=== PATIENT | female | born 1955 | race Caucasian/White ===

== ENCOUNTER 2021-07-23 10:24 | Inpatient (IN) | payer MEDICAID, SELFPAY ==
[2021-07-23] VITALS (12 sets, daily range): BP systolic 96–158; BP diastolic 59–86; PULSE 77–124; RESP 18–24; TEMP 36.6–37.8; O2SAT 86–96; BMI 27.2
--- NOTE | ~2021-07-23 | XR_ITS ---
EXAMINATION: XR chest 1V portable INDICATION: Shortness of breath and hypoxia, COVID 19 TECHNIQUE: Portable AP chest at 1119 hours COMPARISON: None available FINDINGS: There are patchy bilateral interstitial and airspace opacities throughout the all lung zone s. No pleural effusion or pneumothorax is identified. The cardiomediastinal silhouette is normal. IMPRESSION: 1. Diffuse lung disease, consistent with COVID 19 pneumonia given the patient's clinical history. Reviewed, dictated and finalized at location B. IE SCRATCHER
--- NOTE | ~2021-07-23 | CT_ITS ---
EXAMINATION: CTA chest PE protocol DATE: 07/23/2021 13:00 INDICATION: Hypoxia. Tachycardia. COVID-19 pneumonia. TECHNIQUE: Computed tomography angiography (CTA) of the chest was performed with 100 mL Omnipaque-350 intravenous contrast timed to evaluate the pulmonary arteries. Coronal maximum intensity projection 3D-reconstructions were created by the technologist. Automated exposure control and iterative reconst ruction technique were employed. The dose-length product was 425.44 mGy-cm. COMPARISON: Chest single view 07/23/2021, thyroid ultrasound 06/25/2015 FINDINGS: There is mild emphysema. There are widespread groundglass opacities and crazy paving in the lungs involving all lobes with a peripheral predominance. No pleural effusion. There is a chronic mu ltinodular goiter. The heart size is normal. No pericardial effusion. There is no pulmonary embolus. There is mild thoracic spondylosis. There is a chronic compression fracture of T11. IMPRESSION: 1. No pulmonary embolus. Sensitivity is moderately decreased by motion artifact. 2. Diffuse lung disease, consistent with COVID-19 pneumonia. 3. Mild emphysema. Reviewed, dictated and finalized at location A. ELAIN FINISHER IMPRESSION: 1. No pulmonary embolus. Sensitivity is moderately decreased by motion artifact . 2. Diffuse lung disease, consistent with COVID-19 pneumonia. 3. Mild emphysema.
--- NOTE | ~2021-07-23 | XR_ITS ---
EXAMINATION: XR chest 1V portable EXAM DATE: 07/27/2021 10:36 INDICATION: SOB,Cough,COVID + ON 06/17/21 . TECHNIQUE: Portable AP frontal chest x-ray was obtained. Comparison is made to prior examination from 07/23/2021. FINDINGS: There is moderate amount of right-sided peripheral and smaller amount of left-sided periphe ral acute airspace disease, distribution is consistent with COVID pneumonia. Appearance is stable or with mild interval improvement. No pneumothorax or pleural effusion. Cardiomediastinal silhouette is normal. There are no osseous abnormalities identified. IMPRESSION: Moderate amount of bilateral COVID pneumonia, stable or with mild improvement. Reviewed, dictated and finalized at location B. RCEMENT OFFICER
--- NOTE | 2021-07-23 10:51 | ED.SOB ---
HPI - SOB/Dyspnea General Chief Complaint: Shortness of Breath/Dyspnea Stated Complaint: Covid + Time Seen by Provider: 07/23/21 10:58 Source: patient Mode of arrival: ambulatory Limitations: no limitations History of Present Illness HPI Narrative: 65-year-old woman with a history of hypertension and smoking comes in today complaining of increasing shortness of breath. She was diagnosed on 07/18 with COVID pneumonia. She also had a lumbar compression fracture at that time. She has been in quarantine since. And follow-up with her primary care doctor today showed that her SpO2 was 80% on room air and she was taught tachycardic at 140. Patient states that she does not feel worse than she did earlier this week. She states her cough is productive and she denies any chest pain or pressure, vomiting, diarrhea, lightheadedness, abdominal pain, or lower extremity pain or swelling. MD elicited complaint: shortness of breath Pertinent past history: COPD (?) Onset (ago): day(s) (-) Severity: moderate Exacerbating factors: exertion Relieving factors: rest Known history of: COPD (?) Associated symptoms: cough, wheezing and sputum production Treatment prior to arrival: none Related Data Home oxygen amount: none Allergies Allergy/AdvReac Type Severity Reaction Status Date / Time cephalexin [Keflex] Allergy Intermediate unknown Verified 07/23/21 10:53 codeine Allergy Intermediate unknown Verified 07/23/21 10:53 Penicillins Allergy Intermediate unknown Verified 07/23/21 10:53 Review of Systems Review of Systems: All systems reviewed & are unremarkable except as noted in HPI and below Constitutional: Constitutional: Denies chills and Reports fever(s) ( now resolved) Eyes: Eyes: Denies change in vision and Denies photophobia ENT: Denies dysphagia, Denies nasal congestion and Denies sore throat Cardiovascular: Cardiovascular: Denies chest pain and Denies radiating jaw, neck or arm pain Respiratory: Respiratory: Reports cough, Reports dyspnea and Reports wheezing Gastrointestinal: Gastrointestinal: Denies abdominal pain, Denies diarrhea, Denies nausea and Denies vomiting Genitourinary: Genitourinary: Denies nocturia and Denies dysuria Musculoskeletal: Musculoskeletal: Reports as per HPI, Reports back pain, Denies arthralgias and Denies joint swelling Integumentary/Breasts: Skin/Breast: Denies pruritus, Denies erythema and Denies rash Neurologic: Denies vertigo, Denies dizziness, Denies syncope, Denies focal weakness and Denies numbness Hematologic/Lymphatic: Hematologic/Lymphatic: Denies easy bleeding and Denies easy bruising Allergic/Immunologic: Allergic/Immunologic: Denies lip swelling and Denies throat swelling PMFSH Past Medical History Medical History Abnormal finding on thyroid function test (06/16/15) Benign essential tremor Chronic low back pain HTN (hypertension) with goal to be determined Lumbar compression fracture Nicotine dependence Surgical History Surgical History H/O: section History of dilation and curettage History of hysterectomy History of removal of calculus of renal pelvis through percutaneous nephrostomy History of tonsillectomy Social History Social History Smoking packs per day: 1 Smoking cigarettes per day: 20.0 Years smoked: 40 Smoking pack-years: 40.00 Smoking status: Current every day smoker Tobacco type: cigarettes Alcohol intake: current Substance use: never Substance use type: does not use Gender identity (if verbalized by the patient): Female Exam Const: General: alert and ill appearing acutely ( Mild) Orientation/consciousness: patient oriented x3 Limitations: no limitations Other: mild acute distress. HENMT: Head: normal to inspection Ears: external ears normal, TM's normal bilatera
--- NOTE | 2021-07-23 10:52 | ECG_ITS ---
Measurements Intervals [place] Rate: 108 P: 50 MS: 132 QRS: -14 QRSD: 97 T: 20 QT: 330 QTc: 443 Interpretive Statements SINUS TACHYCARDIA LEFT VENTRICULAR HYPERTROPHY CONSIDER INFERIOR INFARCT, AGE INDETERMINATE BASELINE ARTIFACT- I, II, III, AVR, AVL, AVF, V1-V6 ABNORMAL ECG Electronically Signed On 07-23-2021 15:36:03 TYPEWRITER ALIGNER by Nuno Lucio D.O.
[2021-07-23 11:13] LABS: Lactic Acid Reflex 1.6 mmol/L (0.4-2.0)
[2021-07-23 11:20] LABS: NT Pro B Type Natriuretic Pept 244 pg/mL (0-125); Troponin I 10.6 ng/L (0.00-60.4)
[2021-07-23 11:36] LABS: Carboxyhemoglobin 0.7 % (0-1.5); HCO3 ABG 28.4 mmol/L (23-29); Methemoglobin ABG 0.2 % (0-1.5); Oxygen Content ABG 17.4 %vol (16.0-22.0); Oxygen Saturation ABG 85.2 % (95-97); Oxyhemoglobin 84.4 % (94-100); PO2 ABG 44.9 mmHg (80-90); Reduced Hemoglobin 14.7 % (0-1.5); Total Hemoglobin 14.7 g/dL (12.0-18.0); pH ABG 7.54 (7.35-7.45)
[2021-07-23 11:37] LABS: Device NASAL CANNULA; Modified Allen's Test Pass; Site Drawn LEFT RADIAL
[2021-07-23 11:40] LABS: Add Urine Microscopic? YES; Appearance Urine Clear (Clear); Bilirubin Urine Negative (Negative); Blood Urine 2+ (Negative); Color Urine Yellow (Yellow); Glucose Urine UA Negative (Negative); Ketones Urine Negative (Negative); Leukocyte Esterase Ur Negative LEU/UL (Negative); Nitrate Urine Negative (Negative); Protein Urine 3+ (Negative)
[2021-07-23 11:54] LABS: Squamous Epithelial Cell Urine Few /hpf (Few); WBC Urine 0-3 /hpf (0-3)
[2021-07-23 11:55] LABS: Bacteria Urine 2+ /hpf
--- NOTE | 2021-07-23 12:28 | PC.NURSE ---
pt voided 500 ml clear yellow urine per bedpan. resp even and minimally labored with the effort of getting on and off the bedpan
--- NOTE | 2021-07-23 13:36 | PM.IMHP ---
H&P: HPI History of Present Illness Date/Time: 07/23/21 13:36 Maribel Hernandez is a 65 year old female who comes to [facility] after having been diagnosed with COVID at an outside facility with lab results from 07/18/2021. 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 She thought she was just getting tired from working so much. Pt states she is not having SOB when she is resting in the bed but does become SOB with activity. pt denies numbness, tingling, light headedness, dizziness, chest pain, abdominal pain, body aches, joint aches, fever or chills. Pt stopped smoking 1 week ago as she was becoming more ill and having SIB. Pt denies being anxious at this time. She states that she has not had any vaccinations and does not want to be given any vaccinations. Also denies N/V/D. Chief Complaint: SOB, Positive COVID test 07/18/2021 Review of Systems Review of Systems: All systems reviewed & are unremarkable except as noted in HPI and below Respiratory: Respiratory: Reports cough (non-productive) [facility] Past Medical History Medical History Abnormal finding on thyroid function test (06/16/15) Benign essential tremor Chronic low back pain HTN (hypertension) with goal to be determined Lumbar compression fracture Nicotine dependence Surgical History Surgical History H/O: section History of dilation and curettage History of hysterectomy History of removal of calculus of renal pelvis through percutaneous nephrostomy History of tonsillectomy Social History Social History Smoking packs per day: 1 Smoking cigarettes per day: 20.0 Years smoked: 40 Smoking pack-years: 40.00 Smoking status: Current every day smoker Tobacco type: cigarettes Alcohol intake: current Substance use: never Substance use type: does not use Gender identity (if verbalized by the patient): Female Meds Home Medications and Allergies Home Medications Medication Instructions Recorded Confirmed Type lisinopril 20 mg tablet 20 mg PO DAILY #90 tablet 04/27/21 07/23/21 Rx metoprolol tartrate 25 mg tablet 25 mg PO BID #180 tablet 04/27/21 07/23/21 Rx Allergies Allergy/AdvReac Type Severity Reaction Status Date / Time cephalexin [Keflex] Allergy Intermediate unknown Verified 07/23/21 10:53 codeine Allergy Intermediate unknown Verified 07/23/21 10:53 Penicillins Allergy Intermediate unknown Verified 07/23/21 10:53 Vital Signs Vital Signs - 24 hr 07/23/21 10:37 07/23/21 11:25 07/23/21 11:33 Temperature 100.1 F H Pulse Rate 124 H 114 H 113 H Respiratory Rate 22 H 22 H Blood Pressure 158/86 H Pulse Oximetry 88 L 86 L 07/23/21 12:32 Temperature Pulse Rate Respiratory Rate 24 H Blood Pressure Pulse Oximetry 88 L Exam Const: General: cooperative, comfortable, no acute distress, well developed, alert, awake and Physically active Nutritional Appearance: average body habitus Neck: Neck: normal visual inspection, full ROM and no JVD Resp: Effort & Inspection: tachypneic (22) Auscultation: rales bilateral at the base and 1/[address] up and rhonchi (scattered) Cardio: Jugular venous distension: no JVD Rate: tachycardic Heart sounds: S1 normal heart sound present and S2 normal heart sound present GI: GI Palp: Yes Soft to palpation and No Tenderness to palpation present (GI) Auscultation: Hypoactive bowel sounds present Back/Spine/Pelvis: Cervical Spine: other (Mole on her back, Pt states this has been there forever) Skin: General skin exam: normal color and dry skin Neuro: General: oriented to person, oriented to place and oriented to time Cranial nerves: Yes CN's II-XII intact bilaterally (grossly intact) Cognition (Neuro): normal cognition Speech: normal speech Extrem: General: n
--- NOTE | 2021-07-23 15:24 | PC.NURSE ---
Patient admitted to room 211. Patient transferred to bed from the [facility]. Oriented to room and call light.
[2021-07-23] MEDS: DEXTROSE 5%/0.9% SOD CHL 1,000 ML 100 ML IV CONT (16:00)
[2021-07-23] MEDS: REMDESIVIR 200 MG/NS 250 ML 200 MG/250 ML BAG 250 MG IVPB (16:00)
[2021-07-23] MEDS: ENOXAPARIN 40 MG/0.4 ML SYRINGE SUB-Q (17:21)
[2021-07-23] MEDS: ACETAMINOPHEN 325 MG TABLET 650 MG PO (18:09)
[2021-07-23] MEDS: METOPROLOL TARTRATE 25 MG TABLET PO (18:20)
--- NOTE | 2021-07-23 23:09 | PC.NURSE ---
Introduction to the pt completed. Pt whiteboard updated. Pt is laying in bed watching TV with the call light within reach.
[2021-07-24] VITALS (15 sets, daily range): BP systolic 126–156; BP diastolic 79–91; PULSE 79–106; RESP 18–22; TEMP 36.4–36.6; O2SAT 92–98
--- NOTE | 2021-07-24 02:30 | PC.NURSE ---
High flow nasal cannula settings changed to 40L 02 and FiO2 @ 50% per Dr Ellis's order.
[2021-07-24] MEDS: DEXTROSE 5%/0.9% SOD CHL 1,000 ML 100 ML IV CONT ×3 (02:43→22:35)
--- NOTE | 2021-07-24 03:58 | PC.NURSE ---
Battery changed on pt's tele device. Pt is sleeping with the TV on and call light within reach.
[2021-07-24 05:21] LABS: Hematocrit 38.9 % (35.0-49.0); Hemoglobin 12.8 g/dL (12.0-15.0); Mean Corpuscular HGB Conc 32.9 g/dL (32.0-36.0); Mean Corpuscular Hemoglobin 28.2 pg (27.0-31.0); Mean Corpuscular Volume 85.7 fL (78.0-102.0); Mean Platelet Volume 9.6 fl (9.2-11.8); Platelet Count Result 237 K/mm3 (150-420); Red Blood Count 4.54 M/mm3 (4.20-5.40); White Blood Count 3.8 K/mm3 (4.8-10.8)
[2021-07-24 05:33] LABS: INR 1.1; Prothrombin Time 11.4 Seconds (9.50-12.10)
[2021-07-24 05:38] LABS: Band Neutrophils Percent 0 % (0-6); Basophils Percent Manual 0 % (0-1); Eosinophils Percent Manual 0 % (1-6); Lymphocytes Absolute Manual 0.57 K/mm3 (1.1-4.5); Lymphocytes Percent Manual 15 % (18-44); Monocytes Absolute Manual 0.19 K/mm3 (0.1-0.90); Monocytes Percent Manual 5 % (3-9); Neutrophils Absolute Manual 3.04 K/mm3 (1.7-7.2); Neutrophils Percent Manual 80 % (46-73); Platelet Estimate Adequate (Adequate); Total Cells Counted 100
[2021-07-24 05:39] LABS: Atypical Lymphocytes Present
[2021-07-24 05:42] LABS: Alanine Aminotransferase 25 U/L (14-59); Albumin Level 1.8 g/dL (3.4-5.0); Alkaline Phosphatase 71 U/L (46-116); Anion Gap 7 mmol/L (8-16); Aspartate Amino Transferase 45 U/L (15-37); Bilirubin,Total 0.4 mg/dL (0.00-1.00); Blood Urea Nitrogen 10 mg/dL (7-18); Carbon Dioxide 29 mmol/L (21-32); Chloride 103 mmol/L (98-108); Estimated CRCL calculation 73 ml/min; Estimated Glomerular Filt Rate > 60; Glucose 168 mg/dL (70-99); Osmolality Calculated 291 mOsm/kg (285-295); Potassium 3.1 mmol/L (3.5-5.1); Sodium 139 mmol/L (136-145); Total Protein 5.9 g/dL (6.4-8.2)
[2021-07-24] MEDS: POTASSIUM CHLORIDE 20 MEQ TABLET 40 MEQ PO (07:39)
[2021-07-24] MEDS: lisinopriL 20 MG TABLET PO (08:18)
[2021-07-24] MEDS: METOPROLOL TARTRATE 25 MG TABLET PO ×2 (08:18→17:44)
--- NOTE | 2021-07-24 08:34 | PM.IMPN ---
Progress Note: A&P Assessment and Plan (1) COVID-19: Code(s): U07.1 - COVID-19 Status: Acute Assessment and Plan: Will administer Remdesivir, Decadron, HFNC 40/60%, cardiac monitoring with continuous SpO2 monitoring currently 95%, Pt states she is fine but she does look anxious, will monitor Coagulation, ALT, Renal function while on Remdesivir 07/24/2021 PT/INR 11.4/1.1, Cr 0.63, ALT 25, AST 45, HFNC 40L/min / 60%, SpO2 96%, no SOB, no difficulty breathing, lung sounds improved (2) HTN (hypertension) with goal to be determined: Code(s): I10 - Essential (primary) hypertension Status: Chronic Assessment and Plan: Continue Lisinopril and Metoprolol, monitor VS, make adjustments to medications as needed. 07/24/2021 BP 96-151 systolic 59-91 diastolic, HR 70s-100, will continue to monitor, VSS (3) Nicotine dependence: Code(s): F17.200 - Nicotine dependence, unspecified, uncomplicated Status: Acute Assessment and Plan: Pt states she has not had a cigarette in 1 week and does not want a Nicotine Patch at this time. (4) Positive blood culture: Code(s): R78.81 - Bacteremia Status: Acute Assessment and Plan: On 07/18/2021 Pt was positive for Alpha Hemolytic Strep, new Cultures Pending, WBC is WNL, will see how new Blood Cx do and until then watchful waiting. 07/24/2021 Repeat Blood Cx from 07/23/2021 still pending Subjective Date/time seen: 07/24/21 08:34 Pt resting in bed. Maribel has no complaints of Chest Pain or SOB. She denies fevers, chills, muscle aches, body aches, joint pain. She does not move around the room much. Uses bedside commode with RN assistance. She states she is not anxious however she does appear to be a bit anxious. Pt was offered an anxiolytic if she desires. Pt states her breathing is good. Review of Systems Review of Systems: All systems reviewed & are unremarkable except as noted in HPI and below Exam Const: General: cooperative, comfortable, no acute distress, well developed, alert, awake and Physically active Nutritional Appearance: average body habitus Resp: Effort & Inspection: normal respiratory effort Auscultation: rhonchi (Mild bases) Cardio: Jugular venous distension: no JVD Rate: tachycardic Heart sounds: S1 normal heart sound present and S2 normal heart sound present GI: GI Palp: Yes Soft to palpation and No Tenderness to palpation present (GI) Auscultation: normal bowel sounds Skin: General skin exam: normal color and dry skin Neuro: General: oriented to person, oriented to place, oriented to time and CN's II-XI intact bilaterally (grossly intact) Cognition (Neuro): normal cognition Speech: normal speech Motor exam (neuro): 5/5 motor strength present throughout Extrem: General: no pedal edema Psych: Appearance: grossly normal Mental Status: mental status grossly normal Speech and movement: Normal speech and movement present Affect: normal affect Attitude: cooperative Thought process: Normal thought process present Objective Data Vital Signs Vital Signs: Vital Signs - 24 hr 07/23/21 10:37 07/23/21 11:25 07/23/21 11:33 Temperature 100.1 F H Pulse Rate 124 H 114 H 113 H Respiratory Rate 22 H 22 H Blood Pressure 158/86 H Pulse Oximetry 88 L 86 L 07/23/21 12:32 07/23/21 13:29 07/23/21 13:49 Temperature 99.1 F Pulse Rate 107 H 113 H Respiratory Rate 24 H 22 H 20 Blood Pressure 142/85 H Pulse Oximetry 88 L 87 L 96 07/23/21 14:00 07/23/21 14:25 07/23/21 16:00 Temperature 97.9 F 98.6 F Pulse Rate 110 H 108 H 110 H Respiratory Rate 20 18 20 Blood Pressure 147/84 H 96/59 L Pulse Oximetry 94 94 95 07/23/21 18:20 07/23/21 20:00 07/23/21 23:16 Temperature 98.1 F Pulse Rate 108 H 84 77 Respiratory Rate 20 Blood Pressure 140/76 Pulse Oximetry 95 07/24/21 00:00 07/24/21 03:07 07/24/21 03:58 Temperature 97.9 F 98 F Pulse Rate 80 86 79 Respiratory Rate 19 20 Blood Pressu
[2021-07-24] MEDS: REMDESIVIR 100 MG/NS 250 ML 100 MG/250 ML BAG 250 MG IVPB (10:10)
[2021-07-24] MEDS: ENOXAPARIN 40 MG/0.4 ML SYRINGE SUB-Q (17:45)
[2021-07-24 20:13] LABS: Glucose Point of Care 154 mg/dl (65-105)
[2021-07-25] VITALS (9 sets, daily range): BP systolic 141–155; BP diastolic 75–81; PULSE 86–110; RESP 16–24; TEMP 36.4–36.6; O2SAT 93–97
--- NOTE | 2021-07-25 | PC.NURSE ---
Pt assisted to BSC. Urinated clear yellow urine, pt has some noted SOB c exertion. Pt assisted back to bed in position of comfort. Lungs noted c diminished BS nilsa in bases. Cough is dry at this time and nonproductive, SPO2 noted to decrease to 87% when up and moving and RR at around 28. Dr. Coleman notified for an order to give pt Albuterol inhaler c spacer. Order obtained. VSS at this time, mon shows NSR. Call murphy placed in pt reach.
[2021-07-25] MEDS: ALBUTEROL SULFATE (*SP) INHALER 2 PUFF INHALATION ×5 (00:20→20:48)
--- NOTE | 2021-07-25 00:30 | PC.NURSE ---
Pt tolerated use of inhaler c spacer fairly well and noted lung sounds c some improved aeration. Cough a little more productive p use of inhaler. Spo2 @ 92%.
--- NOTE | 2021-07-25 03:41 | PC.NURSE ---
Pt sitting up in bed watching TV, calls using call murphy several times to use BSC. Pt assisted back to bed, noted increase in cough c sputum production of clear yellow sputum. Pt STach on monitor. Spo2 decreases to around 87% when up c exertion, at rest noted around 91-92% on high flow NC.. IVF infusing as per order, call murphy in reach of pt.
[2021-07-25 05:47] LABS: Hematocrit 35.9 % (35.0-49.0); Hemoglobin 11.6 g/dL (12.0-15.0); Mean Corpuscular HGB Conc 32.3 g/dL (32.0-36.0); Mean Corpuscular Hemoglobin 27.9 pg (27.0-31.0); Mean Corpuscular Volume 86.3 fL (78.0-102.0); Mean Platelet Volume 9.5 fl (9.2-11.8); Platelet Count Result 299 K/mm3 (150-420); Red Blood Count 4.16 M/mm3 (4.20-5.40); Red Cell Distribution Width 13.1 % (11.6-14.4); White Blood Count 10.6 K/mm3 (4.8-10.8)
[2021-07-25 05:59] LABS: Alanine Aminotransferase 24 U/L (14-59); Albumin Level 1.7 g/dL (3.4-5.0); Alkaline Phosphatase 63 U/L (46-116); Anion Gap 9 mmol/L (8-16); Aspartate Amino Transferase 39 U/L (15-37); Bilirubin,Total 0.3 mg/dL (0.00-1.00); Blood Urea Nitrogen 10 mg/dL (7-18); Calcium 7.6 mg/dL (8.5-10.1); Carbon Dioxide 26 mmol/L (21-32); Chloride 105 mmol/L (98-108); Estimated CRCL calculation 74 ml/min; Estimated Glomerular Filt Rate > 60; Glucose 132 mg/dL (70-99); INR 1.2; Osmolality Calculated 291 mOsm/kg (285-295); Potassium 3.1 mmol/L (3.5-5.1); Prothrombin Time 12.2 Seconds (9.50-12.10); Sodium 140 mmol/L (136-145); Total Protein 5.3 g/dL (6.4-8.2)
--- NOTE | 2021-07-25 06:29 | PC.NURSE ---
Pt sitting upright in bed watching TV, states she hasn't slept well tonight and only dozing at times. Pt given her albuterol c spacer tx and is noted to be anxious when trying to use inhaler. Pt encouraged during use of inhaler and instructed on importance. Cough more productive p use and lungs noted c fine crackles at bases and some slight improved aeration p tx. Spo2 @ 95%, Stach on monitor at rate 109. Call murphy in reach of pt.
[2021-07-25 07:02] LABS: Magnesium 1.9 mg/dL (1.8-2.4)
[2021-07-25] MEDS: POTASSIUM CHLORIDE 20 MEQ TABLET 40 MEQ PO (08:09)
[2021-07-25] MEDS: METOPROLOL TARTRATE 25 MG TABLET PO ×2 (08:09→17:22)
[2021-07-25] MEDS: lisinopriL 20 MG TABLET PO (08:09)
--- NOTE | 2021-07-25 10:15 | PM.IMPN ---
Progress Note: A&P Assessment and Plan (1) COVID-19: Code(s): U07.1 - COVID-19 Status: Acute Assessment and Plan: Will administer Remdesivir, Decadron, HFNC 40/60%, cardiac monitoring with continuous SpO2 monitoring currently 95%, Pt states she is fine but she does look anxious, will monitor Coagulation, ALT, Renal function while on Remdesivir 07/24/2021 PT/INR 11.4/1.1, Cr 0.63, ALT 25, AST 45, HFNC 40L/min / 60%, SpO2 96%, no SOB, no difficulty breathing, lung sounds improved 07/25/2021 PT/INR 12.2/1.2, Cr 0.62, ALT 24, AST 39, HFNC 35L/min / 41%, SpO2 97% (2) HTN (hypertension) with goal to be determined: Code(s): I10 - Essential (primary) hypertension Status: Chronic Assessment and Plan: Continue Lisinopril and Metoprolol, monitor VS, make adjustments to medications as needed. 07/24/2021 BP 96-151 systolic 59-91 diastolic, HR 70s-100, will continue to monitor, VSS 07/25/2021 VSS, no changes at this time (3) Nicotine dependence: Code(s): F17.200 - Nicotine dependence, unspecified, uncomplicated Status: Acute Assessment and Plan: Pt states she has not had a cigarette in 1 week and does not want a Nicotine Patch at this time. (4) Positive blood culture: Code(s): R78.81 - Bacteremia Status: Acute Assessment and Plan: On 07/18/2021 Pt was positive for Alpha Hemolytic Strep, new Cultures Pending, WBC is WNL, will see how new Blood Cx do and until then watchful waiting. 07/24/2021 Repeat Blood Cx from 07/23/2021 still pending 07/25/2021 No Growth To Date, I called [facility] who informed me the cultures from 07/18/2021 were Alpha Hemolytic Strep with no sensitivity. Subjective Date/time seen: 07/25/21 10:15 Maribel is laying in bed appearing comfortable. She has no complaints or concerns at this time. States breathing is good. No Chest Pain. She is eating and drinking well. Review of Systems Review of Systems: All systems reviewed & are unremarkable except as noted in HPI and below Exam Const: General: cooperative, comfortable, no acute distress, alert, awake and Physically active Nutritional Appearance: average body habitus Resp: Effort & Inspection: normal respiratory effort Auscultation: rales (Posterior bases) Cardio: Rate: regular rate Heart sounds: S1 normal heart sound present and S2 normal heart sound present GI: GI Palp: Yes Soft to palpation, No Tenderness to palpation present (GI) and No Guarding due to palpation present (GI) Auscultation: normal bowel sounds Skin: General skin exam: normal color and dry skin Neuro: General: oriented to person, oriented to place, oriented to time, moves all extremities and CN's II-XI intact bilaterally (grossly intact) Cognition (Neuro): normal cognition Speech: normal speech Extrem: General: normal to inspection and no pedal edema Psych: Appearance: grossly normal Mental Status: mental status grossly normal Speech and movement: Normal speech and movement present Affect: normal affect Attitude: cooperative Thought process: Normal thought process present Objective Data Vital Signs Vital Signs: Vital Signs - 24 hr 07/24/21 12:00 07/24/21 13:00 07/24/21 16:00 Temperature 97.5 F L 97.6 F Pulse Rate 100 106 H 104 H Respiratory Rate 20 20 20 Blood Pressure 156/84 H 151/79 H Pulse Oximetry 95 94 93 07/24/21 16:10 07/24/21 17:44 07/24/21 20:00 Temperature 97.6 F Pulse Rate 104 H 103 H 89 Respiratory Rate 18 20 Blood Pressure 128/86 Pulse Oximetry 93 93 07/24/21 23:57 07/25/21 00:00 07/25/21 04:00 Temperature 97.6 F 97.8 F Pulse Rate 93 93 Respiratory Rate 22 H 24 H Blood Pressure 147/87 H 152/80 H Pulse Oximetry 92 94 07/25/21 08:00 07/25/21 08:09 Temperature 97.6 F Pulse Rate 110 H 107 H Respiratory Rate 20 Blood Pressure 155/79 H Pulse Oximetry 97 Intake/Output Intake/Output: Intake & Output 07/22/21 07/23/21 07/24/21 07/25/21 23:59 23:59 23:59 23:5
[2021-07-25] MEDS: REMDESIVIR 100 MG/NS 250 ML 100 MG/250 ML BAG 250 MG IVPB (10:48)
[2021-07-25] MEDS: ENOXAPARIN 40 MG/0.4 ML SYRINGE SUB-Q (17:21)
--- NOTE | 2021-07-25 19:20 | PC.NURSE ---
Completed change of shift report. Patient is resting comfortably in bed. Patient states that she is not in any pain at this time, but has had issues with back pain off and on. She also stated that she has needed to use the commode frequently. Patient indicated that she did not need anything at this time. Call light is close at hand.
--- NOTE | 2021-07-25 22:44 | PC.NURSE ---
Patient is needing to use the toilet every hour. Patient had her continuous O2 sat lead come off. Patient was able to use the toilet early, so both needs could be taken care of at once. Patient seems to be a little less anxious as the night goes on.
[2021-07-26] VITALS (14 sets, daily range): BP systolic 131–162; BP diastolic 72–91; PULSE 79–112; RESP 16–22; TEMP 36.2–36.6; O2SAT 91–96
--- NOTE | 2021-07-26 02:20 | PC.NURSE ---
Patient rounding completed. Patient needed to use the commode. Patient is able to ambulate from the bed to the commode and back with no difficulty. Patient returned to bed, and attempted to go back to sleep.
[2021-07-26 06:16] LABS: Hematocrit 37.2 % (35.0-49.0); Hemoglobin 12.4 g/dL (12.0-15.0); Mean Corpuscular HGB Conc 33.3 g/dL (32.0-36.0); Mean Corpuscular Hemoglobin 28.8 pg (27.0-31.0); Mean Corpuscular Volume 86.3 fL (78.0-102.0); Mean Platelet Volume 9.5 fl (9.2-11.8); Platelet Count Result 344 K/mm3 (150-420); Red Blood Count 4.31 M/mm3 (4.20-5.40); Red Cell Distribution Width 13.2 % (11.6-14.4); White Blood Count 6.8 K/mm3 (4.8-10.8)
--- NOTE | 2021-07-26 06:20 | PC.NURSE ---
Completed patient rounding. Patient is resting comfortably in bed. She needed to use the commode, and was able to ambulate to and from the commode independently. Patient stated she did not need anything else at this time.
[2021-07-26] MEDS: ALBUTEROL SULFATE (*SP) INHALER 2 PUFF INHALATION ×4 (06:27→21:16)
[2021-07-26 06:30] LABS: INR 1.2; Prothrombin Time 12.4 Seconds (9.50-12.10)
[2021-07-26 06:35] LABS: Alanine Aminotransferase 30 U/L (14-59); Albumin Level 1.8 g/dL (3.4-5.0); Alkaline Phosphatase 75 U/L (46-116); Anion Gap 7 mmol/L (8-16); Aspartate Amino Transferase 43 U/L (15-37); Bilirubin,Total 0.4 mg/dL (0.00-1.00); Blood Urea Nitrogen 9 mg/dL (7-18); Calcium 7.9 mg/dL (8.5-10.1); Carbon Dioxide 27 mmol/L (21-32); Chloride 105 mmol/L (98-108); Estimated CRCL calculation 78 ml/min; Estimated Glomerular Filt Rate > 60; Glucose 111 mg/dL (70-99); Osmolality Calculated 287 mOsm/kg (285-295); Potassium 3.9 mmol/L (3.5-5.1); Sodium 139 mmol/L (136-145); Total Protein 5.6 g/dL (6.4-8.2)
[2021-07-26] MEDS: lisinopriL 20 MG TABLET PO (08:40)
[2021-07-26] MEDS: METOPROLOL TARTRATE 25 MG TABLET PO ×2 (08:40→16:27)
[2021-07-26] MEDS: CLINDAMYCIN 600 MG/D5W 50 ML 600 MG/50 ML PIGGYBACK 100 MG IVPB ×3 (08:40→23:48)
--- NOTE | 2021-07-26 08:42 | PM.IMPN ---
Progress Note: A&P Assessment and Plan (1) COVID-19: Code(s): U07.1 - COVID-19 Status: Acute Assessment and Plan: Will administer Remdesivir, Decadron, HFNC 40/60%, cardiac monitoring with continuous SpO2 monitoring currently 95%, Pt states she is fine but she does look anxious, will monitor Coagulation, ALT, Renal function while on Remdesivir 07/24/2021 PT/INR 11.4/1.1, Cr 0.63, ALT 25, AST 45, HFNC 40L/min / 60%, SpO2 96%, no SOB, no difficulty breathing, lung sounds improved 07/25/2021 PT/INR 12.2/1.2, Cr 0.62, ALT 24, AST 39, HFNC 35L/min / 41%, SpO2 97% 07/26/2021 PT/INR 12.4/1.2, Cr 0.59, ALT 30, AST 43, HFNC 30L/min / 40%. SpO2 97%, RT to change to NC to further wean Pt off supplemental oxygen. Lungs clear, continue to monitor Pt improving. (2) HTN (hypertension) with goal to be determined: Code(s): I10 - Essential (primary) hypertension Status: Chronic Assessment and Plan: Continue Lisinopril and Metoprolol, monitor VS, make adjustments to medications as needed. 07/24/2021 BP 96-151 systolic 59-91 diastolic, HR 70s-100, will continue to monitor, VSS 07/25/2021 VSS, no changes at this time 07/26/2021 VSS, no changes (3) Nicotine dependence: Code(s): F17.200 - Nicotine dependence, unspecified, uncomplicated Status: Acute Assessment and Plan: Pt states she has not had a cigarette in 1 week and does not want a Nicotine Patch at this time. 07/26/2021 Pt again does not want a Nicotine Patch. (4) Positive blood culture: Code(s): R78.81 - Bacteremia Status: Acute Assessment and Plan: On 07/18/2021 Pt was positive for Alpha Hemolytic Strep, new Cultures Pending, WBC is WNL, will see how new Blood Cx do and until then watchful waiting. 07/24/2021 Repeat Blood Cx from 07/23/2021 still pending 07/25/2021 No Growth To Date, I called [facility] who informed me the cultures from 07/18/2021 were Alpha Hemolytic Strep with no sensitivity. 07/26/2021 Our lab reports Gram Positive Cocci in Clusters in Aerobic bottle only, likely same as [facility] Alpha Hemolytic Strep, will cover with Clindamycin as Pt is allergic to PCN and Cephalosporin. Subjective Date/time seen: 07/26/21 08:42 Pt states her breathing is good. Still without CP, Abdominal pain. RN reports Pt has c/o her back hurting. Pt has no questions or concerns at this time. Leesa, Prenatal Genetic Counselor, is working on helping Maribel with insurance and / or other financial assistance. Review of Systems Review of Systems: All systems reviewed & are unremarkable except as noted in HPI and below Exam Const: General: cooperative, comfortable, no acute distress, well developed, alert, awake and Physically active Nutritional Appearance: average body habitus Resp: Effort & Inspection: normal respiratory effort Auscultation: clear to auscultation bilaterally Cardio: Rate: tachycardic Heart sounds: S1 normal heart sound present and S2 normal heart sound present GI: GI Palp: Yes Soft to palpation and No Tenderness to palpation present (GI) Auscultation: normal bowel sounds Skin: General skin exam: normal color and dry skin Neuro: General: oriented to person, oriented to place, oriented to time and CN's II-XI intact bilaterally (grossly intact) Cognition (Neuro): normal cognition Speech: normal speech Motor exam (neuro): 5/5 motor strength present throughout Extrem: General: full ROM, no pedal edema and no calf tenderness Psych: Appearance: grossly normal Mental Status: mental status grossly normal Speech and movement: Normal speech and movement present Affect: normal affect Attitude: cooperative Thought process: Normal thought process present Objective Data Vital Signs Vital Signs: Vital Signs - 24 hr 07/25/21 12:00 07/25/21 16:00 07/25/21 17:22 Temperature 97.9 F 97.9 F Pulse Rate 106 H 106 H 108 H Respiratory Rate 20 20 Blood Pressure 155/75 H 141/81 H Pulse Oximetry 95 93 07/25/21 20:00 07/26/21
[2021-07-26] MEDS: REMDESIVIR 100 MG/NS 250 ML 100 MG/250 ML BAG 250 MG IVPB (09:46)
[2021-07-26] MEDS: ACETAMINOPHEN 325 MG TABLET 650 MG PO (10:55)
[2021-07-26 11:00] LABS: Base Excess ABG 2.5 mmol/L (0-2); HCO3 ABG 24.4 mmol/L (23-29); Oxygen Content ABG 17.6 %vol (16.0-22.0); Oxygen Saturation ABG 94.1 % (95-97); Oxyhemoglobin 93.8 % (94-100); PCO2 ABG 29.9 mmHg (35-45); PO2 ABG 67.5 mmHg (80-90); Total Hemoglobin 13.3 g/dL (12.0-18.0); pH ABG 7.53 (7.35-7.45)
[2021-07-26 11:01] LABS: Modified Allen's Test Pass; Site Drawn LEFT RADIAL
[2021-07-26 11:02] LABS: Device NASAL CANNULA
--- NOTE | 2021-07-26 11:50 | ECHO_ITS ---
Patient Info Name: Maribel Hernandez Age: 65 years : 1955 Gender: Female Ht: 66 in Wt: 168 lbs BSA: 1.90 m2 HR: 83 bpm BP: 158 / 88 mmHg Exam Date: 07/26/2021 12:52 PM Exam Location: [facility] [place] Patient Status: Inpatient Admit Date: 07/23/2021 Staff Ordering Physician: Mike Vallejo Investigative Agent: [place] Fabian Attending Provider: Will Ellis MD Referring Physician: Yoni DUNCAN; Exam Type: CA echo doppler color flow Study Info Indications I52 - Other heart disorders in diseases classified elsewhere Complete two-dimensional, color flow and Doppler transthoracic echocardiogram is performed. Summary 1. Complete two-dimensional, color flow and Doppler transthoracic echocardiogram is performed. 2. Left ventricular chamber dimension is normal. 3. Left ventricular systolic function is normal, estimated at 60-65%. 4. The left ventricular diastolic function is grade I diastolic dysfunction. 5. E/e' 8 is minimally elevated. 6. There is mild to moderate mitral valve regurgitation. 7. There is mild tricuspid valve regurgitation. 8. No pulmonary hypertension, estimated pulmonary arterial systolic pressure is 30 mmHg. Left Ventricle E/e' 8 is minimally elevated. Left ventricular chamber dimension is normal. Left ventricular systolic function is normal, estimated at 60-65%. The left ventricular diastolic function is grade I diastolic dysfunction. Right Ventricle Right ventricular systolic function is normal and with normal TAPSE 2.0 cm. Right ventricular chamber dimension is normal. Left Atria Left atrial chamber dimension is normal. Right Atria Right atrial chamber dimension is normal. Aortic Valve The aortic valve is trileaflet. There is no aortic valve stenosis. There is no aortic valve regurgitation. Pulmonic Valve There is no pulmonic regurgitation. Mitral Valve There is no mitral valve stenosis. There is mild to moderate mitral valve regurgitation. Tricuspid Valve There is mild tricuspid valve regurgitation. No pulmonary hypertension, estimated pulmonary arterial systolic pressure is 30 mmHg. Pericardium/Pleural There is no pericardial effusion. Inferior Vena Cava Normal inferior vena cava with >50% collapse upon inspiration consistent with normal right atrial pressure, 5 mmHg. Aorta The aortic root size at the sinus of Valsalva is normal. Left Ventricular Outflow Tract Name Value Normal LVOT 2D LVOT Diameter 1.9 cm LVOT Doppler LVOT Peak Velocity 87 cm/s LVOT Peak Gradient 3 mmHg LVOT Mean Gradient 1 mmHg LVOT VTI 23 cm LVOT VTI/AV VTI Ratio 0.9 LVOT Stroke Volume 63 ml Mitral Valve Name Value Normal MV Doppler MV Decel Cass
[2021-07-26] MEDS: ENOXAPARIN 40 MG/0.4 ML SYRINGE SUB-Q (16:27)
--- NOTE | 2021-07-26 23:42 | PC.NURSE ---
Pt whiteboard updated. VS completed. Pt is in pleasant mood. Pt ambulated with 1 assist to bedside commode and had loose bm. Pt tolerated ambulation very well. Pt denies any pain at this time. Call light within reach and bed in lowest position.
[2021-07-27] VITALS (9 sets, daily range): BP systolic 133–168; BP diastolic 70–96; PULSE 77–109; RESP 16–20; TEMP 36.4–36.9; O2SAT 91–98
--- NOTE | 2021-07-27 02:27 | PC.NURSE ---
Patient rounding completed. Pt was brought fresh ice water at 01:00 and denied having any pain. A new tele lead pad applied at 02:25. Lights above bed turned off per pt request. Night light and bed in lowest position for pt safety. Trash bags removed/replaced. Pt stated she was comfortable at this time. Call light within reach.
--- NOTE | 2021-07-27 04:51 | PC.NURSE ---
Maribel was brought a cup of orange juice. Call light within reach.
[2021-07-27 05:26] LABS: Hematocrit 37.4 % (35.0-49.0); Hemoglobin 12.6 g/dL (12.0-15.0); Mean Corpuscular HGB Conc 33.7 g/dL (32.0-36.0); Mean Corpuscular Hemoglobin 28.9 pg (27.0-31.0); Mean Corpuscular Volume 85.8 fL (78.0-102.0); Mean Platelet Volume 9.6 fl (9.2-11.8); Platelet Count Result 345 K/mm3 (150-420); Red Blood Count 4.36 M/mm3 (4.20-5.40); Red Cell Distribution Width 13.1 % (11.6-14.4); White Blood Count 9.5 K/mm3 (4.8-10.8)
[2021-07-27 05:39] LABS: INR 1.2; Prothrombin Time 12.2 Seconds (9.50-12.10)
[2021-07-27 05:43] LABS: Alanine Aminotransferase 44 U/L (14-59); Albumin Level 1.8 g/dL (3.4-5.0); Alkaline Phosphatase 72 U/L (46-116); Anion Gap 7 mmol/L (8-16); Aspartate Amino Transferase 49 U/L (15-37); Bilirubin,Total 0.4 mg/dL (0.00-1.00); Blood Urea Nitrogen 11 mg/dL (7-18); Calcium 7.6 mg/dL (8.5-10.1); Carbon Dioxide 28 mmol/L (21-32); Chloride 105 mmol/L (98-108); Estimated CRCL calculation 71 ml/min; Estimated Glomerular Filt Rate > 60; Glucose 136 mg/dL (70-99); Osmolality Calculated 291 mOsm/kg (285-295); Potassium 3.5 mmol/L (3.5-5.1); Sodium 140 mmol/L (136-145); Total Protein 5.6 g/dL (6.4-8.2)
--- NOTE | 2021-07-27 05:55 | PC.NURSE ---
Pt rounding completed. Pt stated she is fine at this time and had no needs. Call light within reach.
[2021-07-27] MEDS: CLINDAMYCIN 600 MG/D5W 50 ML 600 MG/50 ML PIGGYBACK 100 MG IVPB (08:10)
[2021-07-27] MEDS: ALBUTEROL SULFATE (*SP) INHALER 2 PUFF INHALATION ×4 (08:20→20:03)
[2021-07-27] MEDS: lisinopriL 20 MG TABLET PO (09:28)
[2021-07-27] MEDS: METOPROLOL TARTRATE 25 MG TABLET PO ×2 (09:28→18:03)
[2021-07-27 10:38] LABS: Base Excess ABG 4.8 mmol/L (0-2); HCO3 ABG 27.1 mmol/L (23-29); Oxygen Content ABG 17.6 %vol (16.0-22.0); Oxygen Saturation ABG 89.3 % (95-97); Oxyhemoglobin 88.9 % (94-100); PCO2 ABG 33.1 mmHg (35-45); PO2 ABG 53.4 mmHg (80-90); Total Hemoglobin 14.1 g/dL (12.0-18.0); pH ABG 7.53 (7.35-7.45)
[2021-07-27 10:39] LABS: Device NASAL CANNULA; Modified Allen's Test Pass; Site Drawn RIGHT RADIAL
[2021-07-27] MEDS: REMDESIVIR 100 MG/NS 250 ML 100 MG/250 ML BAG 250 MG IVPB (14:00)
--- NOTE | 2021-07-27 14:37 | WPDPN ---
Progress Note: A&P Assessment and Plan (1) COVID-19: Code(s): U07.1 - COVID-19 <RODGER Hester - Last Filed: 07/27/21 14:46> Status: Acute <RODGER Hester - Last Filed: 07/27/21 14:46> Assessment and Plan: Will administer Remdesivir, Decadron, HFNC 40/60%, cardiac monitoring with continuous SpO2 monitoring currently 95%, Pt states she is fine but she does look anxious, will monitor Coagulation, ALT, Renal function while on Remdesivir 07/24/2021 PT/INR 11.4/1.1, Cr 0.63, ALT 25, AST 45, HFNC 40L/min / 60%, SpO2 96%, no SOB, no difficulty breathing, lung sounds improved 07/25/2021 PT/INR 12.2/1.2, Cr 0.62, ALT 24, AST 39, HFNC 35L/min / 41%, SpO2 97% 07/26/2021 PT/INR 12.4/1.2, Cr 0.59, ALT 30, AST 43, HFNC 30L/min / 40%. SpO2 97%, RT to change to NC to further wean Pt off supplemental oxygen. Lungs clear, continue to monitor Pt improving. ABG slight worsening Repeat chest x-ray indicate moderate amount of bilateral Covid pneumonia stable or with now improved Patient on last day of remdesivir 5 more days of dexamethasone We will continue to monitor Will order CBC, CMP D-dimer, CRP, procalcitonin, and ferritin in the a.m. <RODGER Hester - Last Filed: 07/27/21 14:46> (2) HTN (hypertension) with goal to be determined: Code(s): I10 - Essential (primary) hypertension <RODGER Hester - Last Filed: 07/27/21 14:46> Status: Chronic <RODGER Hester - Last Filed: 07/27/21 14:46> Assessment and Plan: Continue Lisinopril and Metoprolol, monitor VS, make adjustments to medications as needed. 07/24/2021 BP 96-151 systolic 59-91 diastolic, HR 70s-100, will continue to monitor, VSS 07/25/2021 VSS, no changes at this time 07/26/2021 VSS, no changes Blood pressure 161/96 We will continue to monitor and adjust medication if needed <Leonie LindDuane Zimmerman LEAD BURNER HELPER-C - Last Filed: 07/27/21 14:46> (3) Nicotine dependence: Code(s): F17.200 - Nicotine dependence, unspecified, uncomplicated <Leonie LindDuane Zimmerman LEAD BURNER HELPER-C - Last Filed: 07/27/21 14:46> Status: Acute <Leonie LindDuane Zimmerman LEAD BURNER HELPER-C - Last Filed: 07/27/21 14:46> Assessment and Plan: Pt states she has not had a cigarette in 1 week and does not want a Nicotine Patch at this time. 07/26/2021 Pt again does not want a Nicotine Patch. <Leonie Zimmerman LEAD BURNER HELPER-C - Last Filed: 07/27/21 14:46> (4) Positive blood culture: Code(s): R78.81 - Bacteremia <Leonie LindDuane Zimmerman LEAD BURNER HELPER-C - Last Filed: 07/27/21 14:46> Status: Acute <Leonie Sanchez Erasmo LEAD BURNER HELPER-C - Last Filed: 07/27/21 14:46> Assessment and Plan: On 07/18/2021 Pt was positive for Alpha Hemolytic Strep, new Cultures Pending, WBC is WNL, will see how new Blood Cx do and until then watchful waiting. 07/24/2021 Repeat Blood Cx from 07/23/2021 still pending 07/25/2021 No Growth To Date, I called [facility] who informed me the cultures from 07/18/2021 were Alpha Hemolytic Strep with no sensitivity. 07/26/2021 Our lab reports Gram Positive Cocci in Clusters in Aerobic bottle only, likely same as [facility] Alpha Hemolytic Strep, will cover with Clindamycin as Pt is allergic to PCN and Cephalosporin. Blood culture with coag negative Staphylococcus Sensitive to vancomycin Will continue vancomycin for 7 days <CHELSY Hester-C - Last Filed: 07/27/21 14:46> Additional Plan 84-year-old female was admitted with COVID pneumonia. She is on steroids and remdesivir. She was noted to have an oxygen saturation of 89% on 1 L FiO2. The patient had Gram-positive cocci bacteremia. The patient has been started on vancomycin. Advised to discontinue clindamycin. That that <Ivan Knox MD - Last Filed: 07/27/21 15:16> Subjective Date/time seen: 07/27/21 14:37 patient notes that her situation has improved denies any shortness of breath and is anxious to discharge home. I did explain to patient d
[2021-07-27] MEDS: ENOXAPARIN 30 MG/0.3 ML SYRINGE SUB-Q (18:04)
[2021-07-28] VITALS (12 sets, daily range): BP systolic 139–155; BP diastolic 41–93; PULSE 84–118; RESP 16–21; TEMP 36.5–37.1; O2SAT 88–95
--- NOTE | 2021-07-28 01:08 | PC.NURSE ---
Pt was brought 550 ml of fresh ice water and had trash replaced/emptied. Call light within reach and bed in lowest position.
--- NOTE | 2021-07-28 02:22 | PC.NURSE ---
Pt rounding completed. Pt is currently sleeping with the TV on. The bed is in lowest position and night light on. Call light within reach.
--- NOTE | 2021-07-28 03:33 | PC.NURSE ---
Pt performed oral care independently and performed very well. Lights and TV on per pt request. HOB elevated while pt had some spontaneous coughing. Telemetry device battery changed and pt denies having any pain at this time. Call light and water within reach.
--- NOTE | 2021-07-28 05:00 | PC.NURSE ---
Maribel was brought 2 saltine cracker packages per her request. Lab was just in her room for a blood draw and pt was in a pleasant mood. Call light within reach.
[2021-07-28 05:04] LABS: Hematocrit 37.2 % (35.0-49.0); Hemoglobin 12.8 g/dL (12.0-15.0); Mean Corpuscular HGB Conc 34.4 g/dL (32.0-36.0); Mean Corpuscular Hemoglobin 29.6 pg (27.0-31.0); Mean Corpuscular Volume 85.9 fL (78.0-102.0); Mean Platelet Volume 9.2 fl (9.2-11.8); Platelet Count Result 378 K/mm3 (150-420); Red Blood Count 4.33 M/mm3 (4.20-5.40); Red Cell Distribution Width 13.2 % (11.6-14.4); White Blood Count 9.9 K/mm3 (4.8-10.8)
[2021-07-28 05:16] LABS: INR 1.1; Prothrombin Time 11.6 Seconds (9.50-12.10)
[2021-07-28 05:25] LABS: D Dimer 0.95 mg/L (0.19-0.50)
[2021-07-28 05:33] LABS: CRP 0.8 mg/dL (0.0-0.9); Ferritin 271 ng/mL (8-252); Magnesium 1.9 mg/dL (1.8-2.4)
[2021-07-28 05:46] LABS: Alanine Aminotransferase 35 U/L (14-59); Albumin Level 1.9 g/dL (3.4-5.0); Alkaline Phosphatase 78 U/L (46-116); Anion Gap 10 mmol/L (8-16); Aspartate Amino Transferase 31 U/L (15-37); Bilirubin,Total 0.4 mg/dL (0.00-1.00); Blood Urea Nitrogen 10 mg/dL (7-18); Calcium 7.7 mg/dL (8.5-10.1); Carbon Dioxide 25 mmol/L (21-32); Chloride 103 mmol/L (98-108); Estimated CRCL calculation 72 ml/min; Estimated Glomerular Filt Rate > 60; Glucose 143 mg/dL (70-99); Osmolality Calculated 287 mOsm/kg (285-295); Potassium 3.8 mmol/L (3.5-5.1); Sodium 138 mmol/L (136-145); Total Protein 5.6 g/dL (6.4-8.2)
[2021-07-28] MEDS: ENOXAPARIN 30 MG/0.3 ML SYRINGE SUB-Q (06:24)
[2021-07-28] MEDS: ALBUTEROL SULFATE (*SP) INHALER 2 PUFF INHALATION ×2 (06:32→10:30)
--- NOTE | 2021-07-28 08:34 | HOMEO2EVAL ---
Evaluation was performed at [facility] Home Oxygen Evaluation RC: Home Oxygen (O2) Evaluation Start: 07/28/21 07:14 Freq: ONCE Status: Active Protocol: RPE Activity Type Activity Date Activity User E-Sign Co-Sign Detail Recorded Client Recorded Date Recorded By Document 07/28/21 08:10 SJB [id number] 07/28/21 08:33 SJB Document 07/28/21 08:13 SJB [id number] 07/28/21 08:33 SJB Document 07/28/21 08:16 SJB [id number] 07/28/21 08:33 SJB Document 07/28/21 08:20 SJB [id number] 07/28/21 08:33 SJB 07/28/21 07/28/21 07/28/21 08:10 08:13 08:16 Home O2 Evaluation Test Phase Resting Exercise Exercise Oxygen Delivery Room Air Room Air Nasal Cannula Oxygen Flow Rate (L/min) 1 Pulse Oximetry (90-100 %) 89 L 88 L 88 L Pulse Rate (60-100 beats/min) 115 H 118 H 113 H Activity Tolerance Good Rating of Perceived Dyspnea (PD) +2 Mild, Some +2 Mild, Some Difficulty, Difficulty, Noticeable to Noticeable to the Observer the Observer Rate of Perceived Exertion (PE) 12 13 Somewhat Hard Ambulation Distance (feet) 40 50 Home Oxygen Evaluation Comments WALKED APPROX AFTER 50 MORE 40 FT PUSHING W FT PTS SP02 /C ON R/A. WENT BACK TO 88 SP02 88%, %, TURNED UP TO STARTED ON 1 [address]B ENCOURAGED. Treatment Charges O2 Evaluation - Inpatient 07/28/21 08:20 Home O2 Evaluation Test Phase Exercise Oxygen Delivery Nasal Cannula Oxygen Flow Rate (L/min) Pulse Oximetry (90-100 %) 91 Pulse Rate (60-100 beats/min) 106 H Activity Tolerance Good Rating of Perceived Dyspnea (PD) +2 Mild, Some Difficulty, Noticeable to the Observer Rate of Perceived Exertion (PE) 13 Somewhat Hard Ambulation Distance (feet) 90 Home Oxygen Evaluation Comments FINISHED WALK ANOTHER 90 FT TO ROOM ON 2 LPM. SP02 REMAINED AT 91% HR 106. PLB WAS MUCH ENCOURAGED. Treatment Charges
[2021-07-28] MEDS: lisinopriL 20 MG TABLET PO (09:25)
[2021-07-28] MEDS: METOPROLOL TARTRATE 25 MG TABLET PO (09:26)
--- NOTE | 2021-07-28 09:34 | PM.DS ---
DS: Admitting Diagnosis Discharge Date 07/28/2021 <RODGER Hester - Last Filed: 07/28/21 12:53> Admitting Diagnosis Covid pneumonia <RODGER Hester - Last Filed: 07/28/21 12:53> DS: Discharge Diagnosis Discharge Diagnosis (1) COVID-19: Code(s): U07.1 - COVID-19 <RODGER Hester - Last Filed: 07/28/21 12:53> Status: Acute <RODGER Hester - Last Filed: 07/28/21 12:53> Assessment and Plan: Will administer Remdesivir, Decadron, HFNC 40/60%, cardiac monitoring with continuous SpO2 monitoring currently 95%, Pt states she is fine but she does look anxious, will monitor Coagulation, ALT, Renal function while on Remdesivir 07/24/2021 PT/INR 11.4/1.1, Cr 0.63, ALT 25, AST 45, HFNC 40L/min / 60%, SpO2 96%, no SOB, no difficulty breathing, lung sounds improved 07/25/2021 PT/INR 12.2/1.2, Cr 0.62, ALT 24, AST 39, HFNC 35L/min / 41%, SpO2 97% 07/26/2021 PT/INR 12.4/1.2, Cr 0.59, ALT 30, AST 43, HFNC 30L/min / 40%. SpO2 97%, RT to change to NC to further wean Pt off supplemental oxygen. Lungs clear, continue to monitor Pt improving. ABG slight improvement Repeat chest x-ray indicate moderate amount of bilateral Covid pneumonia stable or with now improved Patient on last day of remdesivir 5 more days of dexamethasone We will continue to monitor Discharge patient with discharge dexamethasone 5 more days she also requires home O2 at 2 L with ambulation. Patient does not have any insurance but she is arranging to self pay for her oxygen. She will also go home with Symbicort along with albuterol <RODGER Hester - Last Filed: 07/28/21 12:53> (2) HTN (hypertension) with goal to be determined: Code(s): I10 - Essential (primary) hypertension <Leonie Zimmerman WATERPROOFER HELPER-Vargas - Last Filed: 07/28/21 12:53> Status: Chronic <Leonie Zimmerman WATERPROOFER HELPERKristynVargas - Last Filed: 07/28/21 12:53> Assessment and Plan: Continue Lisinopril and Metoprolol, monitor VS, make adjustments to medications as needed. 07/24/2021 BP 96-151 systolic 59-91 diastolic, HR 70s-100, will continue to monitor, VSS 07/25/2021 VSS, no changes at this time 07/26/2021 VSS, no changes Blood pressure 161/96 We will continue to monitor and adjust medication if needed Discharge blood pressure elevated 155/93 increase metoprolol to 37.5 <Leonie Zimmerman WATERPROOFER HELPERKristynVargas - Last Filed: 07/28/21 12:53> (3) Nicotine dependence: Code(s): F17.200 - Nicotine dependence, unspecified, uncomplicated <Leonie Zimmerman WATERPROOFER HELPERKristynVargas - Last Filed: 07/28/21 12:53> Status: Acute <Leonie Zimmerman RODGER - Last Filed: 07/28/21 12:53> Assessment and Plan: Pt states she has not had a cigarette in 1 week and does not want a Nicotine Patch at this time. 07/26/2021 Pt again does not want a Nicotine Patch. Discharge patient nicotine patch on discharge <Leonie Zimmerman WATERPROOFER HELPERDougie - Last Filed: 07/28/21 12:53> (4) Positive blood culture: Code(s): R78.81 - Bacteremia <Leonie Zimmerman WATERPROOFER HELPERKristynVargas - Last Filed: 07/28/21 12:53> Status: Acute <Leonie Zimmerman RODGER - Last Filed: 07/28/21 12:53> Assessment and Plan: On 07/18/2021 Pt was positive for Alpha Hemolytic Strep, new Cultures Pending, WBC is WNL, will see how new Blood Cx do and until then watchful waiting. 07/24/2021 Repeat Blood Cx from 07/23/2021 still pending 07/25/2021 No Growth To Date, I called [facility] who informed me the cultures from 07/18/2021 were Alpha Hemolytic Strep with no sensitivity. 07/26/2021 Our lab reports Gram Positive Cocci in Clusters in Aerobic bottle only, likely same as [place] Alpha Hemolytic Strep, will cover with Clindamycin as Pt is allergic to PCN and Cephalosporin. Blood culture with coag negative Staphylococcus Sensitive to Bactrim Continue Bactrim DS twice daily x10 days <Leonie Zimmerman, WATERPROOFER HELPER-Vargas - Last Filed: 07/28/21 12:53> DS: Summary Hospital Course Reason for hospi
--- NOTE | 2021-07-28 14:58 | PC.NURSE ---
Pt discharged to home. VS stable, Discharged on 2L/NC O2 with pulse ox of 96%. Pt home oxygen delivered to her home from [facility]. Pt belongings sent with her. Discharge instructions reviewed with pt. medications, Oxygen at 2L/NC when active. Pt verbalized understanding.
--- NOTE | 2021-07-29 13:59 | PC.NURSE ---
Pt states she received and understood her discharge instructions. Pt has no other comments.
== END 2021-07-28 14:30 | disposition home or self-care (01) | DRG 137 ==
LOC: CHSED 10:29 → CHS2ND 13:27
PROVIDERS: Nurse Practitioner; Nurse Practitioner Family; Admitting Provider Emergency Medicine; Emergency Provider Emergency Medicine; PCP Nurse Practitioner Family; Visit Provider Emergency Medicine
DX: U07.1 COVID-19 (principal); J12.82 Pneumonia due to coronavirus disease 2019; J96.01 Acute respiratory failure with hypoxia; R78.81 Bacteremia; I10 Essential (primary) hypertension; I34.0 Nonrheumatic mitral (valve) insufficiency; G25.0 Essential tremor; Z90.710 Acquired absence of both cervix and uterus
CPT/HCPCS: 36415; 36600; 71045; 71275; 80053; 81001; 82375; 82728; 82805; 82948; 83050; 83605; 83735; 83880; 84145; 84484; 85025; 85027; 85380; 85610; 86140; 87081; 93005; 93306; 94618; 99285; A9270; J1100; J1650; J3370; J7042; Q9967

== ENCOUNTER 2021-07-23 10:45 | Outpatient (CLI) | payer MEDICAID, SELFPAY ==
[2021-07-23 10:58] LABS: Basophils Absolute Auto 0.02 K/mm3 (0.00-0.10); Basophils Percent Auto 0.3 % (0.0-1.0); Hematocrit 42.8 % (35.0-49.0); Hemoglobin 14.2 g/dL (12.0-15.0); Immature Granulocyte Absolute 0.05 K/mm3 (0.00-0.00); Immature Granulocyte Percent A 0.8 % (0.0-0.0); Lymphocytes Absolute Auto 0.83 K/mm3 (1.10-4.50); Lymphocytes Percent Auto 12.6 % (18.0-42.0); Mean Corpuscular HGB Conc 33.2 g/dL (32.0-36.0); Mean Corpuscular Hemoglobin 28.3 pg (27.0-31.0); Mean Corpuscular Volume 85.4 fL (78.0-102.0); Mean Platelet Volume 10.6 fl (9.2-11.8); Monocytes Percent Auto 6.1 % (2.0-11.0); Neutrophils Absolute Auto 5.3 K/mm3 (1.7-7.2); Neutrophils Percent Auto 80.2 % (50.0-70.0); Platelet Count Result 217 K/mm3 (150-420); Red Blood Count 5.01 M/mm3 (4.20-5.40); Red Cell Distribution Width 13.1 % (11.6-14.4); White Blood Count 6.6 K/mm3 (4.8-10.8)
[2021-07-23 11:03] LABS: INR 1.1; Partial Thromboplastin Time 26.8 SEC (23.90-30.70); Prothrombin Time 11.2 Seconds (9.50-12.10)
[2021-07-23 11:18] LABS: Alanine Aminotransferase 29 U/L (14-59); Alkaline Phosphatase 82 U/L (46-116); Anion Gap 13 mmol/L (8-16); Aspartate Amino Transferase 62 U/L (15-37); Bilirubin,Total 0.7 mg/dL (0.00-1.00); Blood Urea Nitrogen 7 mg/dL (7-18); Carbon Dioxide 27 mmol/L (21-32); Chloride 95 mmol/L (98-108); Estimated Glomerular Filt Rate > 60; Glucose 126 mg/dL (70-99); Osmolality Calculated 280 mOsm/kg (285-295); Potassium 3.1 mmol/L (3.5-5.1); Sodium 135 mmol/L (136-145); Total Protein 6.5 g/dL (6.4-8.2)
[2021-07-27 20:04] LABS: CRP, High Sensitivity >10.0 mg/L (***)
== END 2021-07-23 10:46 | disposition home or self-care (01) ==
LOC: CHSLAB 10:47
PROVIDERS: PCP Nurse Practitioner Family; Visit Provider Nurse Practitioner Family
DX: U07.1 COVID-19 (principal); R78.81 Bacteremia
CPT/HCPCS: 36415; 80053; 85025; 85610; 85730; 86141; 87040; 87147; 87186